=== PATIENT | female | born 1990 | race American Indian/Alaskan Native ===

== ENCOUNTER 2021-06-02 13:09 | Emergency (ER) | payer SELFPAY ==
[2021-06-02] MEDS ORDERED: SODIUM CHLORIDE 0.9% 1000 ML 1,000 ML IV ONE (13:21)
[2021-06-02] MEDS ORDERED: ONDANSETRON 4 MG/2 ML INJ IV ONE (13:21)
[2021-06-02] MEDS ORDERED: ACETAMINOPHEN 325 MG TAB PO ONE (13:21)
--- NOTE | 2021-06-02 14:24 | Emergency Department Report ---
ED General Adult HPI - General Chief complaint: Nausea/Vomiting/Diarrhea Stated complaint: N/V WITHH CHILLS AND HEADACHE Time Seen by Provider: 06/02/21 13:20 Source: patient Mode of arrival: Ambulatory Limitations: No Limitations - History of Present Illness Initial comments: 30-year-old -[place] female who is unvaccinated for Covid presents to the emergency room complaining of body aches headache nausea vomiting fever and chills for the last 3 to 4 days. Patient reports she is not able to keep any food down. She reports she has been currently taking metronidazole. States that she had a Covid test 2 to 3 weeks ago. Which was negative. She denies any chest pain or shortness of breath Onset/Timin -: days(s) Radiation: abdomen Severity scale (0 -10): 7 Quality: aching Consistency: constant Improves with: none Worsens with: none Associated Symptoms: fever/chills (Chills no fever), headaches, nausea/vomiting Treatments Prior to Arrival: none - Related Data Previous Rx's Medication Instructions Recorded Last Taken Type Doxycycline Hyclate [Doxycycline 100 mg PO Q12HR 10 Days #20 tab 06/02/21 Unknown Rx Hyclate TAB] Allergies Allergy/AdvReac Type Severity Reaction Status Date / Time No Known Allergies Allergy Unverified 06/02/21 13:13 ED Review of Systems ROS: Stated complaint: N/V WITHH CHILLS AND HEADACHE Other details as noted in HPI Comment: All other systems reviewed and negative ED Past Medical Hx - Medications Home Medications: Home Medications Medication Instructions Recorded Confirmed Last Taken Type Doxycycline Hyclate [Doxycycline 100 mg PO Q12HR 10 Days #20 tab 06/02/21 Unknown Rx Hyclate TAB] ED Physical Exam - General Limitations: No Limitations General appearance: alert, in no apparent distress - Head Head exam: Present: atraumatic, normocephalic - Eye Eye exam: Present: normal appearance - ENT ENT exam: Present: mucous membranes moist, normal external ear exam - Neck Neck exam: Present: normal inspection, full ROM. Absent: tenderness, lymphadenopathy - Respiratory Respiratory exam: Present: normal lung sounds bilaterally. Absent: respiratory distress, accessory muscle use - Cardiovascular Cardiovascular Exam: Present: tachycardia - GI/Abdominal GI/Abdominal exam: Present: soft, tenderness. Absent: distended - Extremities Exam Extremities exam: Present: normal inspection, full ROM - Back Exam Back exam: Present: normal inspection, full ROM - Neurological Exam Neurological exam: Present: alert, oriented X3 - Psychiatric Psychiatric exam: Present: normal affect, normal mood - Skin Skin exam: Present: warm, dry, intact, normal color. Absent: rash ED Course Vital Signs 06/02/21 06/02/21 13:13 13:40 Temperature 98.6 F Pulse Rate 127 H Respiratory 20 16 Rate Blood Pressure 141/87 [Right] O2 Sat by Pulse 99 Oximetry ED Medical Decision Making - Medical Decision Making 30-year-old -[place] female who is unvaccinated for Covid presents to the emergency room complaining of body aches headache nausea vomiting fever and chills for the last 3 to 4 days. Patient reports she is not able to keep any food down. She reports she has been currently taking metronidazole. States that she had a Covid test 2 to 3 weeks ago. Which was negative. She denies any chest pain or shortness of breath Urinalysis urine test. INT, IV Zofran normal saline and acetaminophen. Critical care attestation.: If time is entered above; I have spent that time in minutes in the direct care of this critically ill patient, excluding procedure time. ED Disposition Clinical Impression: UTI (urinary tract infection) Disposition: 01 HOME / SELF CARE / HOMELESS Is pt being admited?: No Does the pt Need Aspirin: No Condition: Stable Instructions: Urinary Tract Infection, Adult, [id number] Additional Instructions: Urinalysis is positive for urinary tract infection. I would like for you to complete antibiotics as prescribed. Is very important to increase your fluid intake and advance your diet as tolerated. Tylenol or ibuprofen as needed for pain management. Follow-up with an [facility] or primary care provider. Prescriptions: Doxycycline Hyclate [Doxycycline Hyclate TAB] 100 mg PO Q12HR 10 Days #20 tab Referrals: PRIMARY CARE [Primary Care Provider] - 3-5 Days [facility] [Provider Group] - 3-5 Days Forms: Work/School Release Form(ED) Time of Disposition: 16:37
[2021-06-02 16:32] LABS: Bacteria,Urine 3+ /HPF (Negative); Bilirubin,Urine NEG (Negative); Blood,Urine MOD (Negative); Color,Urine Yellow (Yellow); Mucus,Urine FEW /HPF
[2021-06-02 16:34] LABS: WBC,Urine > 182.0 /HPF (0.0-6.0)
[2021-06-02 17:05] VITALS: BP 105/46
== END 2021-06-02 17:05 | disposition home or self-care (01) ==
LOC: ED 13:09
DX: N39.0 Urinary tract infection, site not specified (principal); R51.9 Headache, unspecified; R11.2 Nausea with vomiting, unspecified; Z79.899 Other long term (current) drug therapy
CPT/HCPCS: 36415; 81001; 84702; 96361; 96374; 99283; J2405; J7030; Q0162